=== PATIENT | male | born 1950 | race Caucasian/White ===

== ENCOUNTER 2017-01-02 23:35 | Emergency (ER) | payer MEDICARE, OTHER ==
[2017-01-02] MEDS ORDERED: BABY ASPIRIN 81 MG CHEW PO ONE (23:57)
[2017-01-03 00:03] LABS: BASOPHIL % 0.3 % (0.0-0.4); Eosinophil % 1.1 % (0.00-5.0); Granulocytes % 48.7 % (36.0-66.0); Mean Cell Volume 88.8 fl (78-100); Mean Corpuscular Hemoglobin 30.2 pg (26-32); Mean Platelet Volume 9.7 fl (6-9.5); Monocytes % 14.9 % (0.0-12.0); Platelet Count 222 K/mm3 (150-450); Red Blood Count 4.37 M/mm3 (4.1-5.6); Red Cell Distribution Width 13.2 % (11.5-14.0); White Blood Count 7.3 K/mm3 (4.0-10.5)
[2017-01-03] MEDS ORDERED: BABY ASPIRIN 81 MG CHEW ONE (00:13)
[2017-01-03 00:30] LABS: ALBUMIN 3.7 g/dL (3.4-5.0); ANION GAP 14.9 MEQ/L (5-15); BILIRUBIN,TOTAL 0.3 mg/dL (0.2-1.0); Potassium 3.6 mEq/L (3.5-5.1)
--- NOTE | 2017-01-03 01:15 | ERPHSYRPT ---
- History of Present Illness Time Seen by Provider: 01/02/17 23:50 Source: patient, family () Patient Subjective Stated Complaint: "It feels like I am in a-fib again. it does not feel liek it is not beating normal. it feel slike it beats then pulses and pounds. it woke me up from my sleep. i feel shaky" Triage Nursing Assessment: aox3, breathing easy unlabored, skin pale warm dry, steady gait Physician History: CC: palpitations Hx: 66 y/o patient of Dr Clifford Viramontes and Palmer Anglin. He has hx of afib but has long been in NSR. He takes multaq, xarelto, and bystolic. Tonite he awoke with irregular heart beat, pounding in his chest, sweats, shakes and dry mouth. No chest pain. He felt dizzy and short of breath briefly. It is feeling better now. ILL: Afib, DM, TARYN, thyroid disease ALL: Sulfa Aspirin Treatment Today: 81 mg x 1, provided by ED Allergies/Adverse Reactions: Sulfa (Sulfonamide Antibiotics) [Sulfa(Sulfonamide Antibiotics)] Allergy ( Intermediate, Verified 07/30/13 10:00) Hives adhesive Allergy (Mild, Verified 07/30/13 10:00) Rash Home Medications: Amlodipine/Atorvastatin [Caduet 10 mg-10 mg Tablet] 1 tab PO DAILY 03/24/12 [ History] Fexofenadine HCl [Kate] 180 mg DAILY PRN 03/24/12 [History] Meloxicam [Mobic] 7.5 mg PO BID 03/24/12 [History] Nebivolol HCl 5 MG [Bystolic 5 MG] 10 mg PO DAILY 03/24/12 [History] Levothyroxine Sodium 25 Mcg [Synthroid 25 Mcg] 25 mcg PO DAILY 07/27/13 [ History] Metformin HCl 500 mg [Glucophage 500 MG] 500 mg PO BID 07/27/13 [History] Potassium Chloride 10 Meq Tab* [Klor Con 10 MEQ] 10 meq PO BID 07/27/13 [ History] Dronedarone Hydrochloride 400* [Multaq 400 MG] 400 mg PO BID 07/30/13 [ History] Nebivolol HCl [Bystolic] 10 mg PO DAILY 07/30/13 [History] Olmesartan/Hydrochlorothiazide [Benicar Hct 40-12.5 mg Tablet] 1 each PO DAILY 07/30/13 [History] Rivaroxaban [Xarelto] 20 mg PO DAILY 07/30/13 [History] Hx Tetanus, Diphtheria Vaccination/Date Given: Yes Hx Influenza Vaccination/Date Given: Yes (2011) Hx Pneumococcal Vaccination/Date Given: Yes (2011) - Review of Systems Constitutional: No Fever, No Chills Eyes: No Symptoms Ears, Nose, & Throat: No Symptoms Respiratory: Dyspnea (briefly), No Cough Cardiac: Palpitations, No Chest Pain, No Syncope Abdominal/Gastrointestinal: Nausea, No Abdominal Pain, No Vomiting, No Diarrhea Genitourinary Symptoms: No Symptoms Musculoskeletal: No Symptoms Skin: No Symptoms All Other Systems: Reviewed and Negative - Past Medical History Pertinent Past Medical History: Yes Neurological History: No Pertinent History ENT History: Cataracts Cardiac History: High Cholesterol, Hypertension Respiratory History: No Pertinent History Endocrine Medical History: No Pertinent History Musculoskeletal History: Arthritis GI Medical History: No Pertinent History History: No Pertinent History Psycho-Social History: No Pertinent History Male Reproductive Disorders: No Pertinent History Other Medical History: stress test october 2012 afib . - Past Surgical History Past Surgical History: Yes Neuro Surgical History: No Pertinent History Cardiac: No Pertinent History Respiratory: No Pertinent History Gastrointestinal: No Pertinent History Genitourinary: No Pertinent History Musculoskeletal: Orthopedic Surgery Male Surgical History: No Pertinent History Other Surgical History: fatty cyst exc.(several) arms and back 1970s,right knee cartill.mary.,left knee tear,colonoscopy , mary cataract exc with lens implants - Social History Smoking Status: Never smoker Exposure to second hand smoke: No Drug Use: none Patient Lives Alone: No - Nursing Vital Signs Nursing Vital Signs: Initial Vital Signs Temperature 98.2 F 01/02/17 23:47 Pulse Rate 79 01/02/17 23:47 Respiratory Rate 14 01/02/17 23:47 Blood Pressure 138/80 01/02/17 23:47 O2 Sat by Pulse Oximetry 98 01/02/17 23:47 Pain Scale Pain Intensity 0 - Physical Exam General Appearance: alert Eye Exam: PERRL/EOMI Ears, Nose, Throat Exam: normal ENT inspection, moist mucous membranes Neck Exam: normal inspection, non-tender, supple Respiratory Exam: normal breath sounds, lungs clear Cardiovascular Exam: irregular Gastrointestinal/Abdomen Exam: soft, No tenderness, No distention, No mass, No guarding Extremity Exam: pedal edema, No calf tenderness Neurologic Exam: alert, oriented x 3, cooperative, sensation nml, No motor deficits Skin Exam: warm, dry, No rash SpO2 Interpretation: normal SpO2: 94 Oxygen Delivery: Room Air - Course Nursing assessment & vital signs reviewed: Yes EKG Interpreted by Me: RATE (84), A-fib, NORMAL AXIS, NORMAL INTERVALS (QTc 445) , Non-specific ST Changes - Radiology Exams cxr X-ray Interpretation: Reviewed by me Ordered Tests: Active Orders 24 hr Category Date Time Status Newspaper Subscription Solicitor STAT Care 01/02/17 23:57 Active EKG-ER Only STAT Care 01/02/17 23:57 Active IV Insertion STAT Care 01/02/17 23:57 Active Pulse Oximetry (ED) STAT Care 01/02/17 23:57 Active CHEST 1 VIEW (PORTABLE) Stat Exams 01/02/17 23:57 Taken CBC W DIFF Stat Lab 01/02/17 23:50 Completed CMP Stat Lab 01/02/17 23:50 Completed MAGNESIUM Stat Lab 01/02/17 23:50 Completed NT PRO BNP Stat Lab 01/02/17 23:50 Completed TROPONIN Q3H Lab 01/02/17 23:50 Completed TROPONIN Q3H Lab 01/03/17 02:55 Received TROPONIN Q3H Lab 01/03/17 05:57 Ordered TROPONIN Q3H Lab 01/03/17 08:57 Ordered TROPONIN Q3H Lab 01/03/17 11:57 Ordered Medication Summary Discontinued Medications Generic Name Dose Route Start Last Admin Trade Name Obi PRN Reason Stop Dose Admin Aspirin 81 mg 01/02/17 23:57 01/03/17 00:07 Baby Aspirin 81 Mg Chew PO 01/02/17 23:58 81 mg STAT ONE Administration Aspirin Confirm 01/03/17 00:13 Baby Aspirin 81 Mg Chew Administered 01/03/17 00:14 Dose 81 mg .ROUTE .STK-MED ONE Lab/Rad Data: Laboratory Result Diagrams 01/02/17 23:50 01/02/17 23:50 Laboratory Results 01/02/17 01/02/17 01/02/17 Range/Units 23:50 23:50 23:50 WBC 7.3 (4.0-10.5) K/mm3 RBC 4.37 (4.1-5.6) M/mm3 Hgb 13.2 (12.5-18.0) gm/dl Hct 38.8 L (42-50) % MCV 88.8 (78-100) fl MCH 30.2 (26-32) pg MCHC 34.0 (32-36) g/dl RDW 13.2 (11.5-14.0) % Plt Count 222 (150-450) K/mm3 MPV 9.7 H (6-9.5) fl Gran % 48.7 (36.0-66.0) % Lymphocytes % 35.0 (24.0-44.0) % Monocytes % 14.9 H (0.0-12.0) % Eosinophils % 1.1 (0.00-5.0) % Basophils % 0.3 (0.0-0.4) % Basophils # 0.02 (0-0.4) Sodium 139 (136-145) mEq/L Potassium 3.6 (3.5-5.1) mEq/L Chloride 102 (98-107) mEq/L Carbon Dioxide 26.0 (21-32) mEq/L Anion Gap 14.9 (5-15) MEQ/L BUN 17 (9-20) mg/dL Creatinine 1.39 H (0.55-1.30) mg/dl Estimated GFR 54 ML/MIN Glucose 226 H (70-110) MG/DL Calcium 8.8 (8.5-10.1) mg/dL Magnesium 2.0 (1.8-2.4) mg/dL Total Bilirubin 0.30 (0.2-1.0) mg/dL AST 19 (15-37) U/L ALT 24 (12-78) U/L Alkaline Phosphatase 102 (46-116) U/L Troponin I (0.000-0.056) ng/ml NT-Pro-B Natriuret Pep 95 (0-125) pg/ml Serum Total Protein 7.0 (6.4-8.2) gm/dL Albumin 3.7 (3.4-5.0) g/dL 01/02/17 Range/Units 23:50 WBC (4.0-10.5) K/mm3 RBC (4.1-5.6) M/mm3 Hgb (12.5-18.0) gm/dl Hct (42-50) % MCV (78-100) fl MCH (26-32) pg MCHC (32-36) g/dl RDW (11.5-14.0) % Plt Count (150-450) K/mm3 MPV (6-9.5) fl Gran % (36.0-66.0) % Lymphocytes % (24.0-44.0) % Monocytes % (0.0-12.0) % Eosinophils % (0.00-5.0) % Basophils % (0.0-0.4) % Basophils # (0-0.4) Sodium (136-145) mEq/L Potassium (3.5-5.1) mEq/L Chloride (98-107) mEq/L Carbon Dioxide (21-32) mEq/L Anion Gap (5-15) MEQ/L BUN (9-20) mg/dL Creatinine (0.55-1.30) mg/dl Estimated GFR ML/MIN Glucose (70-110) MG/DL Calcium (8.5-10.1) mg/dL Magnesium (1.8-2.4) mg/dL Total Bilirubin (0.2-1.0) mg/dL AST (15-37) U/L ALT (12-78) U/L Alkaline Phosphatase (46-116) U/L Troponin I < 0.017 (0.000-0.056) ng/ml NT-Pro-B Natriuret Pep (0-125) pg/ml Serum Total Protein (6.4-8.2) gm/dL Albumin (3.4-5.0) g/dL - Progress Progress Note: 01/03/17 01:14 Pt is stable. He is back in afib. Stable and rate is controlled. Troponin neg. Will consult Dr Anglin. 01/03/17 03:09 Pt stable. Ambualted well without symptoms. HR up to 105. BP ok. He still is in afib. Never had chest pain. Repeat troponin pending. Called DR Shah for Palmer Anglin. He advised release and to his office this AM. Will consider cardioversion. Counseled pt/family regarding: lab results, diagnosis, need for follow-up, rad results - Departure Time of Disposition: 03:10 Departure Disposition: Home Clinical Impression: Atrial fibrillation Qualifiers: Atrial fibrillation type: paroxysmal Qualified Code(s): I48.0 - Paroxysmal atrial fibrillation Condition: Stable Critical Care Time: No Referrals: ANTONIA SABILLON MD [NON-STAFF PHY W/O PRIVILEGES] - Instructions: Atrial Fibrillation Additional Instructions: Nothing to eat or drink this AM. Go to Dr Shah office at 9AM to be seen by him. No driving. Return for problems or concerns.
[2017-01-03 02:08] VITALS: BP 114/63; PULSE 63
[2017-01-03 03:13] VITALS: O2SAT 94
--- NOTE | 2017-01-03 08:47 | XRAY ---
Indication: Palpitations. Comparison: October 26, 2012. Portable chest remains clear. Heart is again borderline enlarged. Vascularity normal. 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 Bony thorax intact. Impression: Stable nonacute chest with chronic features.
== END 2017-01-03 04:01 | disposition home or self-care (01) ==
LOC: ED 23:35
DX: I48.0 Paroxysmal atrial fibrillation (principal); Z79.01 Long term (current) use of anticoagulants; Z79.899 Other long term (current) drug therapy; E11.9 Type 2 diabetes mellitus without complications; G47.33 Obstructive sleep apnea (adult) (pediatric); Z79.84 Long term (current) use of oral hypoglycemic drugs; I10 Essential (primary) hypertension; E78.00 Pure hypercholesterolemia, unspecified
CPT/HCPCS: 36000; 36415; 71010; 80053; 83735; 83880; 84484; 85025; 93005; 93041; 99284; A9270-GY

== ENCOUNTER 2020-01-24 05:54 | Day surgery (SDC) | payer MEDICARE, OTHER ==
[~2020-01-24 05:54] MED LIST: DIPRIVAN 200 MG/20 ML IV ONE
[2020-01-24] MEDS ORDERED: Lactated Ringers 1,000 ML IV ONE (06:17)
[2020-01-24] MEDS ORDERED: Lactated Ringers 1,000 ML IV SCH (06:30)
[2020-01-24 08:50] VITALS: PULSE 86; O2SAT 99
[2020-01-24 09:00] VITALS: BP 152/74
--- NOTE | 2020-01-24 09:50 | OP ---
SURGERY DATE/TIME: 01/24/2020729 PREOPERATIVE DIAGNOSIS: Screening colonoscopy. POSTOPERATIVE DIAGNOSIS: Hepatic flexure polyp. PROCEDURE: Colonoscopy. SURGEON: Richard Robertson M.D. ANESTHESIA: MAC by Monty Sandoval CRNA. ESTIMATED BLOOD LOSS: Minimal. SPECIMENS: Hot forceps polypectomy from the hepatic flexure. DESCRIPTION OF PROCEDURE: After informed written consent was obtained, the patient was taken to the endoscopy suite. He was placed in Left lateral decubitus position and underwent monitored anesthesia. A digital rectal exam showed normal sphincter tone and no internal lesions. The scope was inserted into the rectum and sequentially the entire colonic mucosa was traversed. The level of cecum was reached and verified with direct visualization of ileocecal valve. Upon withdrawal careful mucosal inspection revealed a sessile polyp in the hepatic flexure area which was grasped with forceps cauterized and removed. It was removed in piecemeal fashion. It was firm and required multiple grasps and cautery with removal. After removal though the entire lesion appeared to be destroyed with good hemostasis and adequate removal. No other lesions were encountered upon withdrawal. Retroflexion was performed prior to withdrawal and showed no internal lesions. The scope was removed and the patient was transferred to the recovery room. He is advised to follow up in one week for pathology results.
== END 2020-01-24 08:50 | disposition home or self-care (01) ==
LOC: SDC 05:54
PROVIDERS: ATTEND Family Medicine
DX: Z12.11 Encounter for screening for malignant neoplasm of colon (principal); D12.3 Benign neoplasm of transverse colon; E11.9 Type 2 diabetes mellitus without complications; Z79.899 Other long term (current) drug therapy
CPT/HCPCS: 82962; J2704

== ENCOUNTER 2021-06-09 06:47 | Observation (INO) | payer MEDICARE, OTHER ==
[2021-06-09] MEDS ORDERED: Zofran 4 MG/2 ML VIAL IV ONE ×2 (07:22→08:43)
[2021-06-09] MEDS ORDERED: Zofran 4 MG/2 ML VIAL ONE ×2 (07:23→08:40)
[2021-06-09] MEDS ORDERED: Sodium Chloride 0.9% 1000 ML 1,000 ML IV SCH (07:30)
[2021-06-09 07:46] LABS: Absolute Neutrophil Ct (ANC) 11.72 (1.4-6.9); Basophil (Absolute #) 0 (0-0.4); Eosinophil % 0.2 % (0.00-5.0); Eosinophil (Absolute #) 0.03 (0-0.5); Hemoglobin 14.7 gm/dl (12.5-18.0); Lymphocyte (Absolute #) 0.78 (1.0-4.6); Lymphocytes % 5.9 % (24.0-44.0); Mean Cell Volume 93.4 fl (78-100); Mean Corpuscular Hemoglobin 30.5 pg (26-32); Mean Corpuscular Hgb Concent. 32.7 g/dl (32-36); Mean Platelet Volume 10.2 fl (7.5-11.0); Monocyte (Absolute #) 0.76 (0.0-1.3); Monocytes % 5.7 % (0.0-12.0); Neutrophil % 88.2 % (36.0-66.0); Platelet Count 208 K/mm3 (150-450); Red Blood Count 4.82 M/mm3 (4.1-5.6); Red Cell Distribution Width 14.4 % (11.5-14.0); White Blood Count 13.3 K/mm3 (4.0-10.5)
--- NOTE | 2021-06-09 07:53 | ERPHSYRPT ---
- History of Present Illness Time Seen by Provider: 06/09/21 07:10 Historian: patient Exam Limitations: no limitations Patient Subjective Stated Complaint: Patient states he became nauseated at 2am today and has vomited several times since then. Patient describes "my stomach just feels full. Like I have food in there that needs to digest but won't." Patient indicates that he had an ear infection recently and has completed 2 different series of antibiotics for this infection; the most recent atb was finished on Tuesday. He has a follow-up appointment with Dr. Robertson tomorrow at 1:30pm. Denies any fever but indicates he has been having sinus headaches and some dizziness that he is unsure if it is related to the ear infections and if it has anything to do with the new/current N/V. Denies any loose stools or constipation. Last ate milk and cookies at 10pm last night. Triage Nursing Assessment: Patient brought back to ED in W/C. He is alert and oriented and answering questions appropriately. Abdomen is large, firm; patient is obese. Unable to hear bowel sounds on assessment. Patient states he has some slight pain when palpating his right lower abdomen. No SOB noted. Physician History: Patient is a 71-year-old male presents to our ED with complaints of abdominal bloating nausea and vomiting. Symptoms started approximately 2 AM this morning. Patient states he had milk and cookies at approximately 10 PM and felt well at that time. At 2 AM he felt nauseous and vomited several times. Vomitus was nonbloody nonbilious. Patient ingested Pepto-Bismol 3 AM with no significant relief. Patient states his symptoms are ongoing. No trauma. No fever. Patient has been experiencing an ear infection. Patient completed two courses of antibiotics for this ear infection. Patient has been experiencing a sinus headache and some vague dizziness which he attributes to this ear infection. Patient is currently not dizzy. Patient denies alba abdominal pain. There is mild tenderness palpation of the right lower quadrant. No rebound. Symptoms are mild to moderate in intensity. Patient voices no other complaints or concerns at this time. Timing/Duration: today Activities at Onset: none Quality: fullness Abdominal Pain Onset Location: RLQ Pain Radiation: no radiation Severity of Pain-Max: moderate Severity of Pain-Current: mild Modifying Factors: Improves With: nothing Associated Symptoms: nausea, vomiting, No chest pain, No diarrhea, No fever/chills, No shortness of breath, No syncope, No testicular pain, No weakness Previous symptoms: no prior history Allergies/Adverse Reactions: Sulfa (Sulfonamide Antibiotics) [Sulfa(Sulfonamide Antibiotics)] Allergy (Intermediate, Verified 06/09/21 06:49) Hives adhesive Allergy (Mild, Verified 06/09/21 06:49) Rash latex Adverse Reaction (Mild, Verified 06/09/21 06:49) Rash Home Medications: Fexofenadine HCl [Kate] 180 mg PO DAILY PRN 03/24/12 [History] Potassium Chloride 10 Meq Tab* [Klor Con 10 MEQ] 20 meq PO TID 07/27/13 [History] Dronedarone Hydrochloride 400* [Multaq 400 MG] 400 mg PO BID 07/30/13 [History] Nebivolol HCl [Bystolic] 10 mg PO DAILY 07/30/13 [History] Rivaroxaban [Xarelto] 20 mg PO DAILY 07/30/13 [History] Amlodipine/Atorvastatin [Amlodipine-Atorvast 10-20 mg] 1 each PO DAILY 01/17/20 [History] Azelastine Nasal [Astelin Nasal] 1 applic INTRANASAL DAILY 01/17/20 [History] Ibuprofen 200 mg [Motrin 200 mg] 200 mg PO DAILY PRN 01/17/20 [History] Levothyroxine Sodium [Synthroid] 200 mcg PO UD 01/17/20 [History] Losartan Potassium [Cozaar] 100 mg PO DAILY 01/17/20 [History] Magnesium Oxide [Magnesium] 400 mg PO DAILY 01/17/20 [History] Montelukast Sodium 10 mg [Singulair 10 MG] 10 mg PO DAILY 01/17/20 [History] Multivitamin [Multivitamins] 1 each PO DAILY 01/17/20 [History] Olopatadine HCl Ophth [Patanol 1% OPHTHALMIC] 1 drop IO DAILY 01/17/20 [History] Pioglitazone 30 mg [Actos 30 MG] 30 mg PO DAILY 01/17/20 [History] tadalafiL [Cialis] 5 mg PO DAILY 01/17/20 [History] Hx Tetanus, Diphtheria Vaccination/Date Given: Yes Hx Influenza Vaccination/Date Given: Yes Hx Pneumococcal Vaccination/Date Given: Yes (2011) Immunizations Up to Date: Yes Travel Risk - International Travel Have you traveled outside of the country in past 3 weeks: No - Coronavirus Screening Symptoms: Vomiting/Diarrhea, Headaches/Body Aches/Fatigue Close contact with a COVID-19 positive Pt in past 14-21 Days: No - Vaccine Status Have you recieved a Covid-19 vaccination: Yes Community Affairs Manager: [employer] - Vaccination Dates Date of 2cond Vaccination (if applicable): 2020 Comment: Booster - Review of Systems Constitutional: No Symptoms, No Fever, No Chills Eyes: No Symptoms Ears, Nose, & Throat: No Symptoms Respiratory: No Symptoms, No Cough, No Dyspnea Cardiac: No Symptoms, No Chest Pain, No Edema, No Syncope Abdominal/Gastrointestinal: No Symptoms, No Abdominal Pain, No Nausea, No Vomiting, No Diarrhea Genitourinary Symptoms: No Symptoms, No Dysuria Musculoskeletal: No Symptoms, No Back Pain, No Neck Pain Skin: No Symptoms, No Rash Neurological: No Symptoms, No Dizziness, No Focal Weakness, No Sensory Changes Psychological: No Symptoms Endocrine: No Symptoms Hematologic/Lymphatic: No Symptoms Immunological/Allergic: No Symptoms All Other Systems: Reviewed and Negative - Past Medical History Pertinent Past Medical History: Yes Neurological History: No Pertinent History ENT History: Cataracts Cardiac History: Arrhythmia, High Cholesterol, Hypertension Respiratory History: Sleep Apnea Endocrine Medical History: Diabetes Type II, Hypothyroidism, Other Musculoskeletal History: Arthritis GI Medical History: No Pertinent History History: No Pertinent History Psycho-Social History: No Pertinent History Male Reproductive Disorders: No Pertinent History Other Medical History: afib, hashimotos disease, ear infections - Past Surgical History Past Surgical History: Yes Neuro Surgical History: No Pertinent History Cardiac: No Pertinent History Respiratory: No Pertinent History Gastrointestinal: Hernia Repair Genitourinary: No Pertinent History Musculoskeletal: Orthopedic Surgery Male Surgical History: No Pertinent History Other Surgical History: fatty cyst exc.(several) arms and back 1970s,right knee cartill.mary.,left knee tear,colonoscopy , mary cataract exc with lens implants, u mbilical hernia, trigger thumb - Social History Smoking Status: Former smoker Exposure to second hand smoke: No Drug Use: none Patient Lives Alone: No () - Nursing Vital Signs Nursing Vital Signs: Initial Vital Signs Temperature 98 F 06/09/21 06:51 Pulse Rate 73 06/09/21 06:51 Respiratory Rate 17 06/09/21 06:51 Blood Pressure 165/84 06/09/21 06:51 O2 Sat by Pulse Oximetry 97 06/09/21 06:51 Pain Scale Pain Intensity 2 - Physical Exam General Appearance: no apparent distress, alert Eye Exam: PERRL/EOMI, eyes nml inspection Ears, Nose, Throat Exam: normal ENT inspection, pharynx normal, moist mucous membranes Neck Exam: normal inspection, non-tender, supple, full range of motion Respiratory Exam: normal breath sounds, lungs clear, airway intact, No respiratory distress Cardiovascular Exam: regular rate/rhythm, normal heart sounds, normal peripheral pulses Gastrointestinal/Abdomen Exam: soft, normal bowel sounds, No tenderness, No mass Male Genitalia Exam: testicular tenderness, testicular mass Back Exam: normal inspection, normal range of motion, No CVA tenderness, No vertebral tenderness Extremity Exam: normal inspection, normal range of motion, pelvis stable Neurologic Exam: alert, oriented x 3, cooperative, normal mood/affect, nml cere bellar function, sensation nml, No motor deficits Skin Exam: normal color, warm, dry, No jaundice SpO2 Interpretation: normal SpO2: 97 O2 Delivery: Room Air - Course Nursing assessment & vital signs reviewed: Yes EKG Interpreted by Me: RATE, Sinus Rhythm, NORMAL AXIS, NORMAL INTERVALS - CT Exams Abdomen/Pelvis CT Interpretation: Tele-radiologist Report (Ileus versus gastritis. Panniculitis. Observation of the known 3 cm AAA.) Ordered Tests: Active Orders 24 hr Category Date Time Status IV Insertion STAT Care 06/09/21 07:17 Active ABDOMEN AND PELVIS W CONTRAST [CT] Stat Exams 06/09/21 07:20 Completed CBC W DIFF Stat Lab 06/09/21 06:58 Completed CMP Stat Lab 06/09/21 06:58 Completed LIPASE Stat Lab 06/09/21 06:58 Completed TROPONIN Q3H Lab 06/09/21 06:58 Completed TROPONIN Q3H Lab 06/09/21 10:30 Completed TROPONIN Q3H Lab 06/09/21 13:30 Ordered TROPONIN Q3H Lab 06/09/21 16:30 Ordered TROPONIN Q3H Lab 06/09/21 19:30 Ordered UA W/RFX UR CULTURE Stat Lab 06/09/21 07:18 Ordered Transfer Order Routine Transfer 06/09/21 Ordered Medication Summary Generic Name Dose Route Start Last Admin Trade Name Obi PRN Reason Stop Dose Admin Sodium Chloride 1,000 mls @ 100 mls/hr 06/09/21 07:30 06/09/21 07:25 Sodium Chloride 0.9% 1000 Ml IV 07/09/21 07:29 100 mls/hr .Q10H DONATO Administration Discontinued Medications Generic Name Dose Route Start Last Admin Trade Name Obi PRN Reason Stop Dose Admin Ondansetron HCl 4 mg 06/09/21 07:22 06/09/21 07:25 Ondansetron Hcl 4 Mg/2 Ml Vial IV 06/09/21 07:23 4 mg STAT ONE Administration Ondansetron HCl Confirm 06/09/21 07:23 Ondansetron Hcl 4 Mg/2 Ml Vial Administered 06/09/21 07:24 Dose 4 mg .ROUTE .STK-MED ONE Ondansetron HCl Confirm 06/09/21 08:40 Ondansetron Hcl 4 Mg/2 Ml Vial Administered 06/09/21 08:41 Dose 4 mg .ROUTE .STK-MED ONE Ondansetron HCl 4 mg 06/09/21 08:43 06/09/21 08:44 Ondansetron Hcl 4 Mg/2 Ml Vial IV 06/09/21 08:44 4 mg STAT ONE Administration Lab/Rad Data: Laboratory Result Diagrams 06/09/21 06:58 06/09/21 06:58 Laboratory Results 06/09/21 06/09/21 06/09/21 Range/Units 10:30 10:29 06:58 WBC (4.0-10.5) K/mm3 RBC (4.1-5.6) M/mm3 Hgb (12.5-18.0) gm/dl Hct (42-50) % MCV (78-100) fl MCH (26-32) pg MCHC (32-36) g/dl RDW (11.5-14.0) % Plt Count (150-450) K/mm3 MPV (7.5-11.0) fl Gran % (36.0-66.0) % Eos # (Auto) (0-0.5) Absolute Lymphs (auto) (1.0-4.6) Absolute Monos (auto) (0.0-1.3) Lymphocytes % (24.0-44.0) % Monocytes % (0.0-12.0) % Eosinophils % (0.00-5.0) % Basophils % (0.0-0.4) % Absolute Granulocytes (1.4-6.9) Basophils # (0-0.4) Sodium (137-145) mmol/L Potassium (3.5-5.1) mmol/L Chloride (98-107) mmol/L Carbon Dioxide (22-30) mmol/L Anion Gap (5-15) MEQ/L BUN (9-20) mg/dL Creatinine (0.66-1.25) mg/dL Estimated GFR ML/MIN Glucose (74-106) mg/dL Calcium (8.4-10.2) mg/dL Total Bilirubin (0.2-1.3) mg/dL AST (17-59) U/L ALT (0-50) U/L Alkaline Phosphatase (38-126) U/L Troponin I < 0.012 < 0.012 (0.000-0.034) ng/mL Serum Total Protein (6.3-8.2) g/dL Albumin (3.5-5.0) g/dL Lipase (23-300) U/L Influenza Type A Ag NEGATIVE (NEGATIVE) Influenza Type B Ag NEGATIVE (NEGATIVE) RSV (PCR) NEGATIVE (Negative) SARS-CoV-2 (PCR) NEGATIVE (NEGATIVE) 06/09/21 06/09/21 Range/Units 06:58 06:58 WBC 13.3 H (4.0-10.5) K/mm3 RBC 4.82 (4.1-5.6) M/mm3 Hgb 14.7 (12.5-18.0) gm/dl Hct 45.0 (42-50) % MCV 93.4 (78-100) fl MCH 30.5 (26-32) pg MCHC 32.7 (32-36) g/dl RDW 14.4 H (11.5-14.0) % Plt Count 208 (150-450) K/mm3 MPV 10.2 (7.5-11.0) fl Gran % 88.2 H (36.0-66.0) % Eos # (Auto) 0.03 (0-0.5) Absolute Lymphs (auto) 0.78 L (1.0-4.6) Absolute Monos (auto) 0.76 (0.0-1.3) Lymphocytes % 5.9 L (24.0-44.0) % Monocytes % 5.7 (0.0-12.0) % Eosinophils % 0.2 (0.00-5.0) % Basophils % 0.0 (0.0-0.4) % Absolute Granulocytes 11.72 H (1.4-6.9) Basophils # 0 (0-0.4) Sodium 139 (137-145) mmol/L Potassium 3.9 (3.5-5.1) mmol/L Chloride 104 (98-107) mmol/L Carbon Dioxide 24 (22-30) mmol/L Anion Gap 15.1 H (5-15) MEQ/L BUN 18 (9-20) mg/dL Creatinine 1.05 (0.66-1.25) mg/dL Estimated GFR > 60.0 ML/MIN Glucose 145 H (74-106) mg/dL Calcium 8.5 (8.4-10.2) mg/dL Total Bilirubin 0.80 (0.2-1.3) mg/dL AST 25 (17-59) U/L ALT 24 (0-50) U/L Alkaline Phosphatase 98 (38-126) U/L Troponin I (0.000-0.034) ng/mL Serum Total Protein 7.5 (6.3-8.2) g/dL Albumin 4.4 (3.5-5.0) g/dL Lipase 55 (23-300) U/L Influenza Type A Ag (NEGATIVE) Influenza Type B Ag (NEGATIVE) RSV (PCR) (Negative) SARS-CoV-2 (PCR) (NEGATIVE) - Progress Progress: improved Progress Note: Work-up reveals an ileus. Patient also has a panniculitis. We intended to send patient home. However patient unable to tolerate p.o. Patient still feels nauseous. Covid test negative. Will admit for observation. Dr. Robertson is not available per Dr. Mars covering. Dr. Mars accepts admission to observation. Patient agrees to admission at [facility] for further evaluation and treatment. Of note patient is aware of his AAA. Patient states that his doctors are observing the AAA and it has been stable at 3 cm. Portions of this note were created with voice recognition technology. There may be grammatical, spelling, punctuation or sound alike errors 06/09/21 11:33 Discussed with : Elizabeth Will see patient in: hospital (observation) Counseled pt/family regarding: lab results, diagnosis, rad results - Departure Departure Disposition: Observation Clinical Impression: Ileus, Gastroenteritis, Diverticulosis, Mesenteric panniculitis, Cholelithiasis, Renal cyst, left, AAA (abdominal aortic aneurysm), Arthritis of spine, Fatty right inguinal hernia Condition: Stable Critical Care Time: No
[2021-06-09 08:22] LABS: ALBUMIN 4.4 g/dL (3.5-5.0); ALKALINE PHOSPHATASE 98 U/L (38-126); ANION GAP 15.1 MEQ/L (5-15); BLOOD UREA NITROGEN 18 mg/dL (9-20); CHLORIDE 104 mmol/L (98-107); Calcium 8.5 mg/dL (8.4-10.2); Carbon Dioxide 24 mmol/L (22-30); Creatinine 1 1.05 mg/dL (0.66-1.25); EST GLOMERULAR FILTRATION RATE > 60.0 ML/MIN; Glucose 145 mg/dL (74-106); LIPASE 55 U/L (23-300); Potassium 3.9 mmol/L (3.5-5.1); SGOT/AST 25 U/L (17-59); SGPT/ALT 24 U/L (0-50); SODIUM 139 mmol/L (137-145); Total Protein 7.5 g/dL (6.3-8.2)
--- NOTE | 2021-06-09 08:47 | XRAY ---
Indication: Nausea and vomiting. Multiple contiguous axial images obtained through the abdomen and pelvis using 100 cc Isovue 370 contrast. Comparison: August 08, 2015. Lung bases again demonstrates dependent atelectasis. No infiltrate or effusion. Heart is borderline enlarged again with prominent epicardiac fat and left infrahilar calcified nodes. Stomach is moderately fluid distended and mild fluid distended small bowel loops with fluid leveling, ileus versus gastroenteritis. Normal appendix. Mild scattered colonic fecal debris and again sigmoid diverticulosis without diverticulitis. No free fluid/air. Midabdomen demonstrates new mild mesenteric stranding without mesenteric nodes favoring mesenteric panniculitis. Gallbladder demonstrates 2 new stones, largest 1.7 cm in the neck of the gallbladder. New 6 mm left mid renal cortical cyst. Remaining liver, gallbladder, pancreas, spleen, adrenal glands, kidneys, ureters, and bladder are unremarkable. Again moderate scattered aortoiliac calcifications with 3 cm distal AAA. No pathologic retroperitoneal lymphadenopathy. Osseous structures intact again with mild degenerative changes throughout the thoracolumbar spine and small right femur head bone island. Stable small fatty right inguinal hernia. Impression: 1. New fluid distended stomach and small bowel loops with fluid leveling, ileus versus gastroenteritis. 2. New midabdomen mesenteric stranding favoring mesenteric panniculitis. 3. New cholelithiasis without cholecystitis. 4. New tiny left renal cyst. 5. Again sigmoid diverticulosis, 3 cm distal AAA, chronic bony findings, and small fatty right inguinal hernia.
[2021-06-09 11:09] LABS: INFLUENZA A NEGATIVE (NEGATIVE); INFLUENZA B NEGATIVE (NEGATIVE); RESPIRATORY SYNCTIAL VIRUS NEGATIVE (Negative); SARS-CoV-2 Xpert Express NEGATIVE (NEGATIVE)
[2021-06-09] MEDS ORDERED: MORPHINE SULFATE 2 MG INJ IV PRN (12:31)
[2021-06-09] MEDS ORDERED: Zofran 4 MG/2 ML VIAL IV PRN (12:31)
[2021-06-09] MEDS ORDERED: FEXOFENADINE HCL 30 MG PO PRN (14:36)
[2021-06-09] MEDS ORDERED: Patanol 1% OPHTHALMIC IO PRN (14:36)
[2021-06-09] MEDS ORDERED: CLARITIN 10 MG PO PRN (15:01)
[2021-06-09] MEDS ORDERED: Lotrisone Cream TP PRN (15:06)
[2021-06-09] MEDS: Sodium Chloride 0.9% 1000 ML 1,000 ML IV SCH (15:49)
[2021-06-09] MEDS: Flonase NASAL NS SCH (15:50)
[2021-06-09] MEDS: SYNTHROID 100 MCG PO SCH (15:51)
[2021-06-09] MEDS: ZOCOR 20MG PO SCH (15:51)
[2021-06-09] MEDS: Cozaar 50 MG PO SCH (15:51)
[2021-06-09] MEDS: NORVASC 5 MG PO SCH (15:52)
[2021-06-09] MEDS: Cordarone 200 MG PO SCH (15:52)
[2021-06-09] MEDS: Singulair 10 MG PO SCH (15:52)
[2021-06-09] MEDS: Bystolic 5 MG PO SCH (15:52)
[2021-06-09] MEDS: ASTELIN NASAL INTRANASAL SCH (15:53)
[2021-06-09] MEDS ORDERED: XARELTO 10 MG TABLET PO SCH (18:00)
[2021-06-09] MEDS ORDERED: NON-FORMULARY ITEM (Rivaroxaban [Xarelto] 20 MG Tablet) PO SCH (18:00)
[2021-06-09 18:12] LABS: Appearance CLEAR (CLEAR); Bilirubin NEGATIVE (NEGATIVE); Blood NEGATIVE Ery/ul (0-5); Glucose NEGATIVE (NEGATIVE); Ketones NEGATIVE (NEGATIVE); Leukocyte Esterase NEGATIVE (NEGATIVE); Mucus SLIGHT /HPF (NEGATIVE); Nitrite NEGATIVE (NEGATIVE); Protein,Urine Dip NEGATIVE (Negative); Urobilinogen NEGATIVE mg/dL (0-1); WBC 0-2 /HPF (0-5)
[2021-06-09] MEDS: Klor Con 10 MEQ PO SCH (21:20)
[2021-06-09] MEDS ORDERED: Klor Con 10 MEQ PO SCH (22:00)
[2021-06-10] MEDS: Sodium Chloride 0.9% 1000 ML 1,000 ML IV SCH (00:38)
[2021-06-10 05:43] LABS: Absolute Neutrophil Ct (ANC) 4.94 (1.4-6.9); Basophil (Absolute #) 0.01 (0-0.4); Eosinophil % 0.2 % (0.00-5.0); Eosinophil (Absolute #) 0.01 (0-0.5); Hematocrit 38.3 % (42-50); Hemoglobin 12.4 gm/dl (12.5-18.0); Lymphocytes % 12.3 % (24.0-44.0); Mean Cell Volume 95.8 fl (78-100); Mean Corpuscular Hgb Concent. 32.4 g/dl (32-36); Mean Platelet Volume 10.1 fl (7.5-11.0); Monocyte (Absolute #) 0.75 (0.0-1.3); Monocytes % 11.5 % (0.0-12.0); Neutrophil % 75.8 % (36.0-66.0); Platelet Count 178 K/mm3 (150-450); Red Cell Distribution Width 14.5 % (11.5-14.0); White Blood Count 6.5 K/mm3 (4.0-10.5)
[2021-06-10 06:04] LABS: ALBUMIN 3.5 g/dL (3.5-5.0); ALKALINE PHOSPHATASE 62 U/L (38-126); ANION GAP 11.6 MEQ/L (5-15); BLOOD UREA NITROGEN 16 mg/dL (9-20); CHLORIDE 106 mmol/L (98-107); Carbon Dioxide 21 mmol/L (22-30); Creatinine 1 0.94 mg/dL (0.66-1.25); EST GLOMERULAR FILTRATION RATE > 60.0 ML/MIN; Glucose 109 mg/dL (74-106); Potassium 3.5 mmol/L (3.5-5.1); SGOT/AST 19 U/L (17-59); SGPT/ALT 19 U/L (0-50); SODIUM 136 mmol/L (137-145); Total Protein 6.1 g/dL (6.3-8.2)
[2021-06-10 06:28] LABS: Calcium 7.1 mg/dL (8.4-10.2)
[2021-06-10] MEDS ORDERED: Actos 30 MG PO SCH (07:30)
--- NOTE | 2021-06-10 08:29 | PCM.SSS ---
History of Present Illness - Chief Complaint Chief Complaint: Ileus, panniculitis History of Present Illness: Mr.EARLE HDZ is a 71 year old male admitted with abdominal pain and nausea/vomiting/diarrhea consistent with gastroenteritis and ileus, his pain and vomiting are resolved, had some diarrhea overnight but tolerating clear liquids. he has been recently ill with vertigo and ear pain, on 2 rounds of po abx but persists with symptoms. he is not improving, vertigo worsens with movement and was worse while he was vomiting. - Review of Systems Constitutional: No Fever, No Chills Respiratory: No Cough, No Short Of Breath Cardiac: No Chest Pain, No Edema, No Syncope Abdominal/Gastrointestinal: No Abdominal Pain, No Nausea, No Vomiting, No Diarrhea Skin: No Rash Neurological: Dizziness, No Focal Weakness, No Parasthesia, No Sensory Changes Medications & Allergies Home Medications: Home Medication List Fexofenadine HCl [Kate] 180 mg PO DAILY PRN PRN 03/24/12 [History Confirmed 06/09/21] Potassium Chloride 10 Meq Tab* [Klor Con 10 MEQ] 20 meq PO TID 07/27/13 [History Confirmed 06/09/21] Nebivolol HCl [Bystolic] 10 mg PO DAILY 07/30/13 [History Confirmed 06/09/21] Rivaroxaban [Xarelto] 20 mg PO 1800 07/30/13 [History Confirmed 06/09/21] Amlodipine/Atorvastatin [Amlodipine-Atorvast 10-20 mg] 1 each PO DAILY 01/17/20 [History Confirmed 06/09/21] Azelastine Nasal [Astelin Nasal] 1 applic INTRANASAL DAILY 01/17/20 [History Confirmed 06/09/21] Ibuprofen 200 mg [Motrin 200 mg] 200 mg PO Q6H PRN PRN 01/17/20 [History Confirmed 06/09/21] Levothyroxine Sodium [Synthroid] 200 mcg PO DAILY 01/17/20 [History Confirmed 06/09/21] Losartan Potassium [Cozaar] 100 mg PO DAILY 01/17/20 [History Confirmed 06/09/21] Montelukast Sodium 10 mg [Singulair 10 MG] 10 mg PO DAILY 01/17/20 [History Confirmed 06/09/21] Olopatadine HCl Ophth [Patanol 1% OPHTHALMIC] 1 drop IO DAILY PRN PRN 01/17/20 [History Confirmed 06/09/21] Pioglitazone 30 mg [Actos 30 MG] 30 mg PO DAILY 01/17/20 [History Confirmed 06/09/21] tadalafiL [Cialis] 5 mg PO DAILY 01/17/20 [History Confirmed 06/09/21] Amiodarone HCl 200 mg [Cordarone 200 MG] 200 mg PO DAILY 06/09/21 [History Confirmed 06/09/21] Clotrimazole/Betamethasone Dip [Clotrimazole-Betamethasone Lot] 1 applic TP BID PRN PRN 06/09/21 [History Confirmed 06/09/21] Fluticasone Propionate 1 spray NS DAILY 06/09/21 [History Confirmed 06/09/21] Meclizine HCl 12.5 mg PO TID PRN #30 tablet 06/10/21 [Rx] Allergies/Adverse Reactions: Allergies Allergy/AdvReac Type Severity Reaction Status Date / Time Sulfa (Sulfonamide Allergy Intermediate Hives Verified 06/09/21 06:49 Antibiotics) [Sulfa(Sulfonamide Antibiotics)] adhesive Allergy Mild Rash Verified 06/09/21 06:49 latex AdvReac Mild Rash Verified 06/09/21 06:49 alcaftadine [From Lastacaft] AdvReac Verified 06/09/21 13:08 - Past Medical History Past Medical History: Yes Neurological History: No Pertinent History ENT History: Cataracts Cardiac History: Arrhythmia, High Cholesterol, Hypertension Respiratory History: Sleep Apnea Endocrine Medical History: Diabetes Type II, Hypothyroidism, Other Musculoskelatal History: Arthritis GI Medical History: No Pertinent History History: No Pertinent History Pyscho-Social History: No Pertinent History Male Reproductive Disorders: No Pertinent History Comment: afib, hashimotos disease, ear infections - Past Surgical History Past Surgical History: Yes Neuro Surgical History: No Pertinent History Cardiac History: No Pertinent History Respiratory Surgery: No Pertinent History GI Surgical History: Hernia Repair Genitourinary Surgical Hx: No Pertinent History Musculskeletal Surgical Hx: Orthopedic Surgery Male Surgical History: No Pertinent History Other Surgical History: fatty cyst exc.(several) arms and back 1970s,right knee cartill.mary.,left knee tear,colonoscopy , mary cataract exc with lens implants, umbilical hernia, trigger thumb - Social History Smoking Status: Former smoker Exposure to second hand smoke: No Alcohol: None Drug Use: none - Physical Exam Vital Signs: Vital Signs - 24 hr Temp Pulse Resp BP Pulse Ox 06/10/21 06:55 98.7 F 70 17 120/56 94 L 06/10/21 03:49 97.8 F 80 19 129/59 95 06/09/21 23:54 72 18 122/58 93 L 06/09/21 23:27 100.2 F 75 16 122/58 93 L 06/09/21 19:44 98.9 F 72 19 114/59 95 06/09/21 16:00 97.5 F 78 15 128/61 95 06/09/21 12:34 97.5 F 70 22 114/54 95 06/09/21 12:10 97.5 F 70 20 114/54 97 06/09/21 11:59 97 06/09/21 11:00 68 16 95/43 95 06/09/21 09:48 78 18 130/65 98 06/09/21 08:45 70 18 96 General Appearance: no apparent distress, obese Neurologic Exam: alert, oriented x 3 Ears, Nose, Throat Exam: TM abnormal (L) (dull and bulging, no erythema) Respiratory Exam: normal breath sounds, lungs clear, No respiratory distress Cardiovascular Exam: regular rate/rhythm, normal heart sounds, normal peripheral pulses Gastrointestinal/Abdomen Exam: soft, normal bowel sounds, No tenderness, No mass Extremity Exam: normal inspection, normal range of motion, pelvis stable Skin Exam: normal color, warm, dry, No rash Results - Labs Lab/Micro Results: Lab Results-Last 24 Hours 06/09/21 06/09/21 06/09/21 Range/Units 06:58 06:58 10:29 WBC (4.0-10.5) K/mm3 RBC (4.1-5.6) M/mm3 Hgb (12.5-18.0) gm/dl Hct (42-50) % MCV (78-100) fl MCH (26-32) pg MCHC (32-36) g/dl RDW (11.5-14.0) % Plt Count (150-450) K/mm3 MPV (7.5-11.0) fl Gran % (36.0-66.0) % Eos # (Auto) (0-0.5) Absolute Lymphs (auto) (1.0-4.6) Absolute Monos (auto) (0.0-1.3) Lymphocytes % (24.0-44.0) % Monocytes % (0.0-12.0) % Eosinophils % (0.00-5.0) % Basophils % (0.0-0.4) % Absolute Granulocytes (1.4-6.9) Basophils # (0-0.4) Sodium 139 (137-145) mmol/L Potassium 3.9 (3.5-5.1) mmol/L Chloride 104 (98-107) mmol/L Carbon Dioxide 24 (22-30) mmol/L Anion Gap 15.1 H (5-15) MEQ/L BUN 18 (9-20) mg/dL Creatinine 1.05 (0.66-1.25) mg/dL Estimated GFR > 60.0 ML/MIN Glucose 145 H (74-106) mg/dL Calcium 8.5 (8.4-10.2) mg/dL Total Bilirubin 0.80 (0.2-1.3) mg/dL AST 25 (17-59) U/L ALT 24 (0-50) U/L Alkaline Phosphatase 98 (38-126) U/L Troponin I < 0.012 (0.000-0.034) ng/mL Serum Total Protein 7.5 (6.3-8.2) g/dL Albumin 4.4 (3.5-5.0) g/dL Lipase 55 (23-300) U/L Urine Color (YELLOW) Urine Appearance (CLEAR) Urine pH (5-6) Ur Specific Penn (1.005-1.025) Urine Protein (Negative) Urine Ketones (NEGATIVE) Urine Blood (0-5) Sly/ul Urine Nitrite (NEGATIVE) Urine Bilirubin (NEGATIVE) Urine Urobilinogen (0-1) mg/dL Ur Leukocyte Esterase (NEGATIVE) Urine WBC (Auto) (0-5) /HPF Urine RBC (Auto) (0-2) /HPF U Epithel Cells (Auto) (FEW) /HPF Urine Bacteria (Auto) (NEGATIVE) /HPF Urine Mucus (Auto) (NEGATIVE) /HPF Urine Culture Reflexed (NO) Urine Glucose (NEGATIVE) mg/dL Influenza Type A Ag NEGATIVE (NEGATIVE) Influenza Type B Ag NEGATIVE (NEGATIVE) RSV (PCR) NEGATIVE (Negative) SARS-CoV-2 (PCR) NEGATIVE (NEGATIVE) 06/09/21 06/09/21 06/09/21 Range/Units 10:30 13:27 16:16 WBC (4.0-10.5) K/mm3 RBC (4.1-5.6) M/mm3 Hgb (12.5-18.0) gm/dl Hct (42-50) % MCV (78-100) fl MCH (26-32) pg MCHC (32-36) g/dl RDW (11.5-14.0) % Plt Count (150-450) K/mm3 MPV (7.5-11.0) fl Gran % (36.0-66.0) % Eos # (Auto) (0-0.5) Absolute Lymphs (auto) (1.0-4.6) Absolute Monos (auto) (0.0-1.3) Lymphocytes % (24.0-44.0) % Monocytes % (0.0-12.0) % Eosinophils % (0.00-5.0) % Basophils % (0.0-0.4) % Absolute Granulocytes (1.4-6.9) Basophils # (0-0.4) Sodium (137-145) mmol/L Potassium (3.5-5.1) mmol/L Chloride (98-107) mmol/L Carbon Dioxide (22-30) mmol/L Anion Gap (5-15) MEQ/L BUN (9-20) mg/dL Creatinine (0.66-1.25) mg/dL Estimated GFR ML/MIN Glucose (74-106) mg/dL Calcium (8.4-10.2) mg/dL Total Bilirubin (0.2-1.3) mg/dL AST (17-59) U/L ALT (0-50) U/L Alkaline Phosphatase (38-126) U/L Troponin I < 0.012 < 0.012 < 0.012 (0.000-0.034) ng/mL Serum Total Protein (6.3-8.2) g/dL Albumin (3.5-5.0) g/dL Lipase (23-300) U/L Urine Color (YELLOW) Urine Appearance (CLEAR) Urine pH (5-6) Ur Specific Penn (1.005-1.025) Urine Protein (Negative) Urine Ketones (NEGATIVE) Urine Blood (0-5) Sly/ul Urine Nitrite (NEGATIVE) Urine Bilirubin (NEGATIVE) Urine Urobilinogen (0-1) mg/dL Ur Leukocyte Esterase (NEGATIVE) Urine WBC (Auto) (0-5) /HPF Urine RBC (Auto) (0-2) /HPF U Epithel Cells (Auto) (FEW) /HPF Urine Bacteria (Auto) (NEGATIVE) /HPF Urine Mucus (Auto) (NEGATIVE) /HPF Urine Culture Reflexed (NO) Urine Glucose (NEGATIVE) mg/dL Influenza Type A Ag (NEGATIVE) Influenza Type B Ag (NEGATIVE) RSV (PCR) (Negative) SARS-CoV-2 (PCR) (NEGATIVE) 06/09/21 06/10/21 06/10/21 Range/Units 17:38 05:20 05:20 WBC 6.5 (4.0-10.5) K/mm3 RBC 4.00 L (4.1-5.6) M/mm3 Hgb 12.4 L (12.5-18.0) gm/dl Hct 38.3 L (42-50) % MCV 95.8 (78-100) fl MCH 31.0 (26-32) pg MCHC 32.4 (32-36) g/dl RDW 14.5 H (11.5-14.0) % Plt Count 178 (150-450) K/mm3 MPV 10.1 (7.5-11.0) fl Gran % 75.8 H (36.0-66.0) % Eos # (Auto) 0.01 (0-0.5) Absolute Lymphs (auto) 0.80 L (1.0-4.6) Absolute Monos (auto) 0.75 (0.0-1.3) Lymphocytes % 12.3 L (24.0-44.0) % Monocytes % 11.5 (0.0-12.0) % Eosinophils % 0.2 (0.00-5.0) % Basophils % 0.2 (0.0-0.4) % Absolute Granulocytes 4.94 (1.4-6.9) Basophils # 0.01 (0-0.4) Sodium 136 L (137-145) mmol/L Potassium 3.5 (3.5-5.1) mmol/L Chloride 106 (98-107) mmol/L Carbon Dioxide 21 L (22-30) mmol/L Anion Gap 11.6 (5-15) MEQ/L BUN 16 (9-20) mg/dL Creatinine 0.94 (0.66-1.25) mg/dL Estimated GFR > 60.0 ML/MIN Glucose 109 H (74-106) mg/dL Calcium 7.1 L D (8.4-10.2) mg/dL Total Bilirubin 0.60 (0.2-1.3) mg/dL AST 19 (17-59) U/L ALT 19 (0-50) U/L Alkaline Phosphatase 62 (38-126) U/L Troponin I (0.000-0.034) ng/mL Serum Total Protein 6.1 L (6.3-8.2) g/dL Albumin 3.5 (3.5-5.0) g/dL Lipase (23-300) U/L Urine Color YELLOW (YELLOW) Urine Appearance CLEAR (CLEAR) Urine pH 5.0 (5-6) Ur Specific Penn 1.060 (1.005-1.025) Urine Protein NEGATIVE (Negative) Urine Ketones NEGATIVE (NEGATIVE) Urine Blood NEGATIVE (0-5) Sly/ul Urine Nitrite NEGATIVE (NEGATIVE) Urine Bilirubin NEGATIVE (NEGATIVE) Urine Urobilinogen NEGATIVE (0-1) mg/dL Ur Leukocyte Esterase NEGATIVE (NEGATIVE) Urine WBC (Auto) 0-2 (0-5) /HPF Urine RBC (Auto) NONE (0-2) /HPF U Epithel Cells (Auto) NONE (FEW) /HPF Urine Bacteria (Auto) NONE (NEGATIVE) /HPF Urine Mucus (Auto) SLIGHT (NEGATIVE) /HPF Urine Culture Reflexed NO (NO) Urine Glucose NEGATIVE (NEGATIVE) mg/dL Influenza Type A Ag (NEGATIVE) Influenza Type B Ag (NEGATIVE) RSV (PCR) (Negative) SARS-CoV-2 (PCR) (NEGATIVE) - Radiology Impressions Radiology Exams & Impressions: Radiology Procedures Category Date Time Status ABDOMEN AND PELVIS W CONTRAST [CT] Stat Exams 06/09/21 07:20 Completed - Other Procedures and Tests Respiratory Therapy 06/09/21 20:13 BiPap/CPAP ROUTINE Assessment/Plan (1) Ileus Current Visit: Yes Status: Acute Assessment & Plan: resolved, home later today if tolerates regular diet. discussed bland diet and maintenance of hydration. Code(s): K56.7 - ILEUS, UNSPECIFIED (2) Vertigo Current Visit: Yes Status: Acute Assessment & Plan: adding po meclizine, needs ENT consult, has seen Dr Foster previously Code(s): R42 - DIZZINESS AND GIDDINESS (3) Atrial fibrillation Current Visit: No Status: Acute Qualifiers: Atrial fibrillation type: paroxysmal Qualified Code(s): I48.0 - Paroxysmal atrial fibrillation Code(s): I48.91 - UNSPECIFIED ATRIAL FIBRILLATION Hospital Summary - Vitals & Intake/Output Vital Signs: Vital Signs Temperature 98.7 F 06/10/21 06:55 Pulse Rate 70 06/10/21 06:55 Respiratory Rate 17 06/10/21 06:55 Blood Pressure 120/56 06/10/21 06:55 O2 Sat by Pulse Oximetry 94 L 06/10/21 06:55 Intake & Output: Intake & Output 06/07/21 06/08/21 06/09/21 06/10/21 11:59 11:59 11:59 11:59 Intake Total 4269 Balance 4269 Weight 156.489 kg 154.6 kg - Lab Result Diagrams: 06/10/21 05:20 06/10/21 05:20 Lab Results-Last 24 Hrs: Lab Results-Last 24 Hours 06/09/21 06/09/21 06/09/21 Range/Units 06:58 06:58 10:29 WBC (4.0-10.5) K/mm3 RBC (4.1-5.6) M/mm3 Hgb (12.5-18.0) gm/dl Hct (42-50) % MCV (78-100) fl MCH (26-32) pg MCHC (32-36) g/dl RDW (11.5-14.0) % Plt Count (150-450) K/mm3 MPV (7.5-11.0) fl Gran % (36.0-66.0) % Eos # (Auto) (0-0.5) Absolute Lymphs (auto) (1.0-4.6) Absolute Monos (auto) (0.0-1.3) Lymphocytes % (24.0-44.0) % Monocytes % (0.0-12.0) % Eosinophils % (0.00-5.0) % Basophils % (0.0-0.4) % Absolute Granulocytes (1.4-6.9) Basophils # (0-0.4) Sodium 139 (137-145) mmol/L Potassium 3.9 (3.5-5.1) mmol/L Chloride 104 (98-107) mmol/L Carbon Dioxide 24 (22-30) mmol/L Anion Gap 15.1 H (5-15) MEQ/L BUN 18 (9-20) mg/dL Creatinine 1.05 (0.66-1.25) mg/dL Estimated GFR > 60.0 ML/MIN Glucose 145 H (74-106) mg/dL Calcium 8.5 (8.4-10.2) mg/dL Total Bilirubin 0.80 (0.2-1.3) mg/dL AST 25 (17-59) U/L ALT 24 (0-50) U/L Alkaline Phosphatase 98 (38-126) U/L Troponin I < 0.012 (0.000-0.034) ng/mL Serum Total Protein 7.5 (6.3-8.2) g/dL Albumin 4.4 (3.5-5.0) g/dL Lipase 55 (23-300) U/L Urine Color (YELLOW) Urine Appearance (CLEAR) Urine pH (5-6) Ur Specific Penn (1.005-1.025) Urine Protein (Negative) Urine Ketones (NEGATIVE) Urine Blood (0-5) Sly/ul Urine Nitrite (NEGATIVE) Urine Bilirubin (NEGATIVE) Urine Urobilinogen (0-1) mg/dL Ur Leukocyte Esterase (NEGATIVE) Urine WBC (Auto) (0-5) /HPF Urine RBC (Auto) (0-2) /HPF U Epithel Cells (Auto) (FEW) /HPF Urine Bacteria (Auto) (NEGATIVE) /HPF Urine Mucus (Auto) (NEGATIVE) /HPF Urine Culture Reflexed (NO) Urine Glucose (NEGATIVE) mg/dL Influenza Type A Ag NEGATIVE (NEGATIVE) Influenza Type B Ag NEGATIVE (NEGATIVE) RSV (PCR) NEGATIVE (Negative) SARS-CoV-2 (PCR) NEGATIVE (NEGATIVE) 06/09/21 06/09/21 06/09/21 Range/Units 10:30 13:27 16:16 WBC (4.0-10.5) K/mm3 RBC (4.1-5.6) M/mm3 Hgb (12.5-18.0) gm/dl Hct (42-50) % MCV (78-100) fl MCH (26-32) pg MCHC (32-36) g/dl RDW (11.5-14.0) % Plt Count (150-450) K/mm3 MPV (7.5-11.0) fl Gran % (36.0-66.0) % Eos # (Auto) (0-0.5) Absolute Lymphs (auto) (1.0-4.6) Absolute Monos (auto) (0.0-1.3) Lymphocytes % (24.0-44.0) % Monocytes % (0.0-12.0) % Eosinophils % (0.00-5.0) % Basophils % (0.0-0.4) % Absolute Granulocytes (1.4-6.9) Basophils # (0-0.4) Sodium (137-145) mmol/L Potassium (3.5-5.1) mmol/L Chloride (98-107) mmol/L Carbon Dioxide (22-30) mmol/L Anion Gap (5-15) MEQ/L BUN (9-20) mg/dL Creatinine (0.66-1.25) mg/dL Estimated GFR ML/MIN Glucose (74-106) mg/dL Calcium (8.4-10.2) mg/dL Total Bilirubin (0.2-1.3) mg/dL AST (17-59) U/L ALT (0-50) U/L Alkaline Phosphatase (38-126) U/L Troponin I < 0.012 < 0.012 < 0.012 (0.000-0.034) ng/mL Serum Total Protein (6.3-8.2) g/dL Albumin (3.5-5.0) g/dL Lipase (23-300) U/L Urine Color (YELLOW) Urine Appearance (CLEAR) Urine pH (5-6) Ur Specific [place] (1.005-1.025) Urine Protein (Negative) Urine Ketones (NEGATIVE) Urine Blood (0-5) Sly/ul Urine Nitrite (NEGATIVE) Urine Bilirubin (NEGATIVE) Urine Urobilinogen (0-1) mg/dL Ur Leukocyte Esterase (NEGATIVE) Urine WBC (Auto) (0-5) /HPF Urine RBC (Auto) (0-2) /HPF U Epithel Cells (Auto) (FEW) /HPF Urine Bacteria (Auto) (NEGATIVE) /HPF Urine Mucus (Auto) (NEGATIVE) /HPF Urine Culture Reflexed (NO) Urine Glucose (NEGATIVE) mg/dL Influenza Type A Ag (NEGATIVE) Influenza Type B Ag (NEGATIVE) RSV (PCR) (Negative) SARS-CoV-2 (PCR) (NEGATIVE) 06/09/21 06/10/21 06/10/21 Range/Units 17:38 05:20 05:20 WBC 6.5 (4.0-10.5) K/mm3 RBC 4.00 L (4.1-5.6) M/mm3 Hgb 12.4 L (12.5-18.0) gm/dl Hct 38.3 L (42-50) % MCV 95.8 (78-100) fl MCH 31.0 (26-32) pg MCHC 32.4 (32-36) g/dl RDW 14.5 H (11.5-14.0) % Plt Count 178 (150-450) K/mm3 MPV 10.1 (7.5-11.0) fl Gran % 75.8 H (36.0-66.0) % Eos # (Auto) 0.01 (0-0.5) Absolute Lymphs (auto) 0.80 L (1.0-4.6) Absolute Monos (auto) 0.75 (0.0-1.3) Lymphocytes % 12.3 L (24.0-44.0) % Monocytes % 11.5 (0.0-12.0) % Eosinophils % 0.2 (0.00-5.0) % Basophils % 0.2 (0.0-0.4) % Absolute Granulocytes 4.94 (1.4-6.9) Basophils # 0.01 (0-0.4) Sodium 136 L (137-145) mmol/L Potassium 3.5 (3.5-5.1) mmol/L Chloride 106 (98-107) mmol/L Carbon Dioxide 21 L (22-30) mmol/L Anion Gap 11.6 (5-15) MEQ/L BUN 16 (9-20) mg/dL Creatinine 0.94 (0.66-1.25) mg/dL Estimated GFR > 60.0 ML/MIN Glucose 109 H (74-106) mg/dL Calcium 7.1 L D (8.4-10.2) mg/dL Total Bilirubin 0.60 (0.2-1.3) mg/dL AST 19 (17-59) U/L ALT 19 (0-50) U/L Alkaline Phosphatase 62 (38-126) U/L Troponin I (0.000-0.034) ng/mL Serum Total Protein 6.1 L (6.3-8.2) g/dL Albumin 3.5 (3.5-5.0) g/dL Lipase (23-300) U/L Urine Color YELLOW (YELLOW) Urine Appearance CLEAR (CLEAR) Urine pH 5.0 (5-6) Ur Specific [place] 1.060 (1.005-1.025) Urine Protein NEGATIVE (Negative) Urine Ketones NEGATIVE (NEGATIVE) Urine Blood NEGATIVE (0-5) Sly/ul Urine Nitrite NEGATIVE (NEGATIVE) Urine Bilirubin NEGATIVE (NEGATIVE) Urine Urobilinogen NEGATIVE (0-1) mg/dL Ur Leukocyte Esterase NEGATIVE (NEGATIVE) Urine WBC (Auto) 0-2 (0-5) /HPF Urine RBC (Auto) NONE (0-2) /HPF U Epithel Cells (Auto) NONE (FEW) /HPF Urine Bacteria (Auto) NONE (NEGATIVE) /HPF Urine Mucus (Auto) SLIGHT (NEGATIVE) /HPF Urine Culture Reflexed NO (NO) Urine Glucose NEGATIVE (NEGATIVE) mg/dL Influenza Type A Ag (NEGATIVE) Influenza Type B Ag (NEGATIVE) RSV (PCR) (Negative) SARS-CoV-2 (PCR) (NEGATIVE) - Radiology Exams Ordered Rad Exams-Entire Visit: Radiology Procedures Category Date Time Status ABDOMEN AND PELVIS W CONTRAST [CT] Stat Exams 06/09/21 07:20 Completed - Procedures and Test Procedures and Tests throughout Hospitalization: Therapy Orders & Screens 06/09/21 20:13 BiPap/CPAP ROUTINE Comment: Diagnosis: Ileus, panniculitis - Discharge Disposition: Home, Self-Care Condition: Stable Prescriptions: New Meclizine HCl 12.5 mg PO TID PRN #30 tablet Continue Fexofenadine HCl [Kate] 180 mg PO DAILY PRN PRN PRN Reason: Allergies Potassium Chloride 10 Meq Tab* [Klor Con 10 MEQ] 20 meq PO TID Rivaroxaban [Xarelto] 20 mg PO 1800 Nebivolol HCl [Bystolic] 10 mg PO DAILY Losartan Potassium [Cozaar] 100 mg PO DAILY Levothyroxine Sodium [Synthroid] 200 mcg PO DAILY Pioglitazone 30 mg [Actos 30 MG] 30 mg PO DAILY Amlodipine/Atorvastatin [Amlodipine-Atorvast 10-20 mg] 1 each PO DAILY Montelukast Sodium 10 mg [Singulair 10 MG] 10 mg PO DAILY Olopatadine HCl Ophth [Patanol 1% OPHTHALMIC] 1 drop IO DAILY PRN PRN PRN Reason: eye dryness Azelastine Nasal [Astelin Nasal] 1 applic INTRANASAL DAILY Ibuprofen 200 mg [Motrin 200 mg] 200 mg PO Q6H PRN PRN PRN Reason: arthritis tadalafiL [Cialis] 5 mg PO DAILY Amiodarone HCl 200 mg [Cordarone 200 MG] 200 mg PO DAILY Fluticasone Propionate 1 spray NS DAILY Clotrimazole/Betamethasone Dip [Clotrimazole-Betamethasone Lot] 1 applic TP BID PRN PRN PRN Reason: skin irritation Follow up with: GERARDO FOSTER [NON-STAFF PHY W/O PRIVILEGES] - Call for Appointment ESTHER HORNE MD [Primary Care Provider] - 1 Week
[2021-06-10] MEDS ORDERED: ANTIVERT 25 MG PO PRN (08:30)
[2021-06-10] MEDS: Klor Con 10 MEQ PO SCH (09:31)
[2021-06-10] MEDS: Singulair 10 MG PO SCH (09:31)
[2021-06-10] MEDS: Cordarone 200 MG PO SCH (09:31)
[2021-06-10] MEDS: Cozaar 50 MG PO SCH (09:31)
[2021-06-10] MEDS: NORVASC 5 MG PO SCH (09:32)
[2021-06-10] MEDS: SYNTHROID 100 MCG PO SCH (09:32)
[2021-06-10] MEDS: ZOCOR 20MG PO SCH (09:32)
[2021-06-10] MEDS: Bystolic 5 MG PO SCH (09:32)
[2021-06-10] MEDS ORDERED: [UNRECOGNIZED DRUG - OTHER] PO SCH (10:00)
[2021-06-10] MEDS ORDERED: SYNTHROID 100 MCG PO SCH (10:00)
[2021-06-10] MEDS ORDERED: AMLODIPINE PO SCH (10:00)
[2021-06-10] MEDS ORDERED: NON-FORMULARY ITEM (Losartan Potassium [Cozaar] 100 MG Tablet) PO SCH (10:00)
[2021-06-10] MEDS ORDERED: ATORVASTATIN PO SCH (10:00)
[2021-06-10] MEDS ORDERED: Flonase NASAL NS SCH (10:00)
[2021-06-10] MEDS ORDERED: TADALAFIL 5 MG PO SCH (10:00)
[2021-06-10] MEDS ORDERED: NON-FORMULARY ITEM (Nebivolol Hcl [Bystolic] 10 MG Tablet) PO SCH (10:00)
[2021-06-10] MEDS: ASTELIN NASAL INTRANASAL SCH (11:15)
[2021-06-10] MEDS: Flonase NASAL NS SCH (11:15)
[2021-06-10 11:46] VITALS: BP 121/58; PULSE 64; O2SAT 97
== END 2021-06-10 13:10 | disposition home or self-care (01) ==
LOC: ED 06:47 → MED SURG 11:37
PROVIDERS: ADMIT Family Medicine; ATTEND Family Medicine
DX: K56.7 Ileus, unspecified (principal); R42 Dizziness and giddiness; I48.91 Unspecified atrial fibrillation; H92.03 Otalgia, bilateral; E06.3 Autoimmune thyroiditis; E11.9 Type 2 diabetes mellitus without complications; E03.9 Hypothyroidism, unspecified; E78.00 Pure hypercholesterolemia, unspecified; I10 Essential (primary) hypertension; Z79.899 Other long term (current) drug therapy; Z20.828 Contact with and (suspected) exposure to other viral communicable diseases
CPT/HCPCS: 0241U; 36415; 74177; 80053; 81001; 83690; 84484; 85025; 96374; 96376; 99285; 93268; J2405; A9270-GY; G0378

== ENCOUNTER 2022-10-20 23:33 | Emergency (ER) | payer MEDICARE, OTHER ==
--- NOTE | 2022-10-20 23:37 | ERPHSYRPT ---
- History of Present Illness Time Seen by Provider: 10/20/22 23:37 Source: patient, family Exam Limitations: no limitations Physician History: This is a morbidly obese white male patient who presents with blood pressure issues. Specifically, the patient states that despite taking his medication this evening his blood pressure at home was 176/91. He has a mild headache and mild left arm discomfort. Patient denies chest pain. He has no visual changes. Patient's primary care provider is Dr. Robertson and his rn outpatient surgery is Dr. Anglin. His blood pressure medication amlodipine/atorvastatin combination medication was stopped 6 weeks ago and patient started on hydrochlorothiazide. Patient has a history of atrial fibrillation which is now controlled with amiodarone and Bystolic. Patient is also on Xarelto. Patient has a history of hypertension, hyper both thyroidism, sleep apnea, Aislinn's disease and hyperlipidemia. Patient had a twelve-lead EKG performed on 06/09/2021 which showed no acute ischemic changes and a heart rate of 70 bpm as well as a prolong ed [place] interval. Timing/Duration: today Severity: mild Associated Symptoms: headaches (Mild), other (Mild left arm discomfort) Allergies/Adverse Reactions: Sulfa (Sulfonamide Antibiotics) [Sulfa(Sulfonamide Antibiotics)] Allergy (Intermediate, Verified 10/20/22 23:44) Hives adhesive Allergy (Mild, Verified 10/20/22 23:44) Rash latex Adverse Reaction (Mild, Verified 10/20/22 23:44) Rash alcaftadine [From Lastacaft] Adverse Reaction (Verified 10/20/22 23:44) Home Medications: Fexofenadine HCl [Kate] 180 mg PO DAILY PRN PRN 03/24/12 [History] Potassium Chloride Tab* [Klor Con] 10 meq PO BID 07/27/13 [History] Nebivolol HCl [Bystolic] 10 mg PO DAILY 07/30/13 [History] Rivaroxaban [Xarelto] 20 mg PO DAILY 07/30/13 [History] Azelastine Nasal [Astelin Nasal] 1 applic INTRANASAL DAILY 01/17/20 [History] Levothyroxine Sodium [Synthroid] 150 mcg PO DAILY 01/17/20 [History] Losartan Potassium [Cozaar] 100 mg PO DAILY 01/17/20 [History] Montelukast Sodium 10 mg [Singulair 10 MG] 10 mg PO DAILY 01/17/20 [History] Olopatadine HCl Ophth [Olopatadine 1% Ophthalmic] 1 drop IO DAILY PRN PRN 01/17/20 [History] tadalafiL [Cialis] 5 mg PO DAILY 01/17/20 [History] Amiodarone HCl 200 mg [Cordarone 200 MG] 200 mg PO DAILY 06/09/21 [History] Fluticasone Propionate 1 spray NS DAILY 06/09/21 [History] Atorvastatin Calcium 20 mg PO DAILY 10/21/22 [History] Dapagliflozin Propanediol [Farxiga] 10 mg PO DAILY 10/21/22 [History] Hydrochlorothiazide 25 mg [hydroDIURIL 25 MG] 25 mg PO DAILY 10/21/22 [History] Hx Tetanus, Diphtheria Vaccination/Date Given: Yes Hx Influenza Vaccination/Date Given: Yes Hx Pneumococcal Vaccination/Date Given: Yes (2011) Travel Risk - International Travel Have you traveled outside of the country in past 3 weeks: No - Coronavirus Screening Are you exhibiting any of the following symptoms?: No Close contact with a COVID-19 positive Pt in past 14-21 Days: No - Vaccine Status Have you recieved a Covid-19 vaccination: Yes Government [employer]s [employer]: [employer] - Vaccination Dates Date of 2cond Vaccination (if applicable): 2020 Comment: Booster - Review of Systems Constitutional: No Symptoms Eyes: No Symptoms Ears, Nose, & Throat: No Symptoms Respiratory: No Symptoms Cardiac: No Symptoms, No Chest Pain Abdominal/Gastrointestinal: No Symptoms Genitourinary Symptoms: No Symptoms Musculoskeletal: No Symptoms, Other (Mild left arm discomfort) Skin: No Symptoms Neurological: Headache (Mild) Psychological: No Symptoms Endocrine: No Symptoms Hematologic/Lymphatic: No Symptoms Immunological/Allergic: No Symptoms All Other Systems: Reviewed and Negative - Past Medical History Pertinent Past Medical History: Yes Neurological History: No Pertinent History ENT History: Cataracts Cardiac History: Arrhythmia, High Cholesterol, Hypertension Respiratory History: Sleep Apnea Endocrine Medical History: Diabetes Type II, Hypothyroidism, Other Musculoskeletal History: Arthritis GI Medical History: No Pertinent History History: No Pertinent History Psycho-Social History: No Pertinent History Male Reproductive Disorders: No Pertinent History Other Medical History: afib, hashimotos disease, ear infections - Past Surgical History Past Surgical History: Yes Neuro Surgical History: No Pertinent History Cardiac: No Pertinent History Respiratory: No Pertinent History Gastrointestinal: Hernia Repair Genitourinary: No Pertinent History Musculoskeletal: Orthopedic Surgery Male Surgical History: No Pertinent History Other Surgical History: fatty cyst exc.(several) arms and back 1970s,right knee cartill.mary.,left knee tear,colonoscopy , mary cataract exc with lens implants, umbilical hernia, trigger thumb - Social History Smoking Status: Former smoker Exposure to second hand smoke: No Drug Use: none Patient Lives Alone: No () - Nursing Vital Signs Nursing Vital Signs: Initial Vital Signs Temperature 98.4 F 10/20/22 23:44 Pulse Rate 69 10/20/22 23:44 Respiratory Rate 18 10/20/22 23:44 Blood Pressure 201/101 10/20/22 23:44 O2 Sat by Pulse Oximetry 96 10/20/22 23:44 Pain Scale Pain Intensity 0 - Physical Exam General Appearance: no apparent distress, alert, anxiety, obese Eye Exam: PERRL/EOMI, eyes nml inspection Ears, Nose, Throat Exam: normal ENT inspection, moist mucous membranes Neck Exam: normal inspection, non-tender, supple, full range of motion Respiratory Exam: normal breath sounds, lungs clear, airway intact, No chest tenderness, No respiratory distress Cardiovascular Exam: regular rate/rhythm, normal heart sounds, normal peripheral pulses Gastrointestinal/Abdomen Exam: soft, normal bowel sounds, No tenderness Rectal Exam: not done Back Exam: normal inspection, normal range of motion, No CVA tenderness, No vertebral tenderness Extremity Exam: normal inspection, normal range of motion, pelvis stable Neurologic Exam: alert, oriented x 3, cooperative, mail officer II-XII nml as tested, nor mal mood/affect, nml cerebellar function, nml station & gait, sensation nml Skin Exam: normal color, warm, dry Lymphatic Exam: No adenopathy SpO2 Interpretation: normal O2 Delivery: Room Air - Course Nursing assessment & vital signs reviewed: Yes EKG Interpreted by Me: RATE (69), Sinus Rhythm, NORMAL AXIS, NORMAL QRS, NORMAL ST-T, Other (Patient also has a prolonged [place] interval. There are no acute ischemic changes on today's twelve-lead EKG. There is no change from a twelve- lead EKG that was performed on 06/09/2021) Ordered Tests: Active Orders 24 hr Category Date Time Status Program Arranger STAT Care 10/21/22 00:28 Active EKG-ER Only STAT Care 10/21/22 00:27 Active IV Insertion STAT Care 10/21/22 00:27 Active Pulse Oximetry (ED) STAT Care 10/21/22 00:27 Active HEAD WITHOUT CONTRAST [CT] Stat Exams 10/21/22 00:30 Completed CBC W DIFF Stat Lab 10/21/22 00:27 Completed CMP Stat Lab 10/21/22 01:03 Completed MAGNESIUM Stat Lab 10/21/22 01:03 Completed T4 (Thyroxine) Stat Lab 10/21/22 01:03 Completed TROPONIN Q4H Lab 10/21/22 01:03 Completed TROPONIN Q4H Lab 10/21/22 02:57 Completed TROPONIN Q4H Lab 10/21/22 08:30 Ordered TSH [TSH, 3RD Generation] Stat Lab 10/21/22 01:03 Completed Medication Summary Discontinued Medications Generic Name Dose Route Start Last Admin Trade Name Freq PRN Reason Stop Dose Admin Hydrocodone Bitart/Acetaminophen 1 tab 10/21/22 00:20 10/21/22 00:26 Hydrocodone/Apap 5/325 1 Tab Tablet PO 10/21/22 00:21 Not Given STAT ONE Enalaprilat 1.25 mg 10/21/22 00:29 10/21/22 00:32 Enalaprilat 2.5 Mg Injection IV 10/21/22 00:30 1.25 mg STAT ONE Administration Enalaprilat Confirm 10/21/22 00:31 Enalaprilat 2.5 Mg Injection Administered 10/21/22 00:32 Dose 2.5 mg IV .STK-MED ONE Lab/Rad Data: Laboratory Result Diagrams 10/21/22 00:27 10/21/22 01:03 Laboratory Results 10/21/22 10/21/22 10/21/22 Range/Units 02:57 01:03 01:03 WBC (4.0-10.5) x10^3/uL RBC (4.1-5.6) x10^6/uL Hgb (12.5-18.0) g/dL Hct (42-50) % MCV (78-100) fL MCH (26-32) pg MCHC (32-36) g/dL RDW (11.5-14.0) % Plt Count (150-450) x10^3/uL MPV (7.5-11.0) fL Gran % (36.0-66.0) % Immature Gran % (Auto) (0.00-0.4) % Nucleat RBC Rel Count (0.00-0.1) % Eos # (Auto) (0-0.5) x10^3/uL Immature Gran # (Auto) (0.00-0.03) x10^3u/L Absolute Lymphs (auto) (1.0-4.6) x10^3/uL Absolute Monos (auto) (0.0-1.3) x10^3/uL Absolute Nucleated RBC (0.00-0.01) x10^3u/L Lymphocytes % (24.0-44.0) % Monocytes % (0.0-12.0) % Eosinophils % (0.00-5.0) % Basophils % (0.0-0.4) % Absolute Granulocytes (1.4-6.9) x10^3/uL Basophils # (0-0.4) x10^3/uL Sodium (137-145) mmol/L Potassium (3.5-5.1) mmol/L Chloride (98-107) mmol/L Carbon Dioxide (22-30) mmol/L Anion Gap (5-15) MEQ/L BUN (9-20) mg/dL Creatinine (0.66-1.25) mg/dL Estimated GFR ML/MIN Glucose (74-106) mg/dL Calcium (8.4-10.2) mg/dL Magnesium (1.6-2.3) mg/dL Total Bilirubin (0.2-1.3) mg/dL AST (17-59) U/L ALT (0-50) U/L Alkaline Phosphatase (38-126) U/L Troponin I < 0.012 < 0.012 (0.000-0.034) ng/mL Serum Total Protein (6.3-8.2) g/dL Albumin (3.5-5.0) g/dL Thyroxine (T4) 9.30 (5.53-10.96) ug/dL TSH 3rd Generation (0.47-4.68) mIU/L 10/21/22 10/21/22 10/21/22 Range/Units 01:03 01:03 00:27 WBC 9.4 (4.0-10.5) x10^3/uL RBC 4.79 (4.1-5.6) x10^6/uL Hgb 14.5 (12.5-18.0) g/dL Hct 44.4 (42-50) % MCV 92.7 (78-100) fL MCH 30.3 (26-32) pg MCHC 32.7 (32-36) g/dL RDW 13.4 (11.5-14.0) % Plt Count 253 (150-450) x10^3/uL MPV 10.3 (7.5-11.0) fL Gran % 61.2 (36.0-66.0) % Immature Gran % (Auto) 0.3 (0.00-0.4) % Nucleat RBC Rel Count 0.0 (0.00-0.1) % Eos # (Auto) 0.06 (0-0.5) x10^3/uL Immature Gran # (Auto) 0.03 (0.00-0.03) x10^3u/L Absolute Lymphs (auto) 2.40 (1.0-4.6) x10^3/uL Absolute Monos (auto) 1.12 (0.0-1.3) x10^3/uL Absolute Nucleated RBC 0.00 (0.00-0.01) x10^3u/L Lymphocytes % 25.6 (24.0-44.0) % Monocytes % 12.0 (0.0-12.0) % Eosinophils % 0.6 (0.00-5.0) % Basophils % 0.3 (0.0-0.4) % Absolute Granulocytes 5.72 (1.4-6.9) x10^3/uL Basophils # 0.03 (0-0.4) x10^3/uL Sodium 137 (137-145) mmol/L Potassium 3.3 L (3.5-5.1) mmol/L Chloride 99 (98-107) mmol/L Carbon Dioxide 28 (22-30) mmol/L Anion Gap 12.8 (5-15) MEQ/L BUN 17 (9-20) mg/dL Creatinine 1.14 (0.66-1.25) mg/dL Estimated GFR > 60.0 ML/MIN Glucose 151 H (74-106) mg/dL Calcium 9.0 (8.4-10.2) mg/dL Magnesium 2.1 (1.6-2.3) mg/dL Total Bilirubin 0.50 (0.2-1.3) mg/dL AST 33 (17-59) U/L ALT 40 (0-50) U/L Alkaline Phosphatase 107 (38-126) U/L Troponin I (0.000-0.034) ng/mL Serum Total Protein 7.6 (6.3-8.2) g/dL Albumin 4.2 (3.5-5.0) g/dL Thyroxine (T4) (5.53-10.96) ug/dL TSH 3rd Generation 8.270 H (0.47-4.68) mIU/L - Progress Progress: improved Progress Note: 10/21/22 03:33 This patient's medical history is 1 of moderate complexity. The level of complexity and the work-up performed is based on review of the patient's past medical history, review the patient's medication list, review of the patient's drug allergy list, history of present illness and physical findings on examination. In this patient, the patient is to undergo CT scan of the head without contrast, CBC, CMP, troponin level, T4 and TSH level, and twelve-lead EKG. I reviewed the results of the work-up including reviewing the radiologist interpretation of CT scan of the head which shows no acute intracranial abnormality. Patient's potassium was slightly low and we provided the patient with potassium 10 mEq orally in the emergency department. Patient's twelve-lead EKG was normal and unchanged from 1 that was performed on 05/20/2021. Patient no longer has left arm pain. We will discuss with the patient regarding providing him with a pain pill if his headache persists. I think it safe for the patient to be discharged home there are no acute, emergent medical issue at this time. His blood pressure is now under better control and we will have him discuss with his rn outpatient surgery regarding changes in his antihypertensive regimen. Counseled pt/family regarding: lab results, diagnosis, need for follow-up, rad results Medical Desision Making - Independent Historian Additional History obtained from: Spouse - Diagnostic Testing Diagnostic test were ordered, analyzed, and reviewed by me: Yes Radiological Interpretation: Reviewed by me, Teleradiologist Report - Risk of complications Low Risk: Low risk of morbidity from additional dx testing or treatment - Departure Departure Disposition: Home Clinical Impression: Hypertension, Hypokalemia, Hypothyroidism Condition: Stable Critical Care Time: No Referrals: ESTHER ROBERTSON MD [Primary Care Provider] - Follow up/PCP as directed Additional Instructions: Continue your medication as prescribed. Call your prescribing providers later today and discuss your symptoms and your visit to the emergency department today. Discussed with them modification of your drug regimens and they can change them if indicated.
[2022-10-21] MEDS ORDERED: NORCO 5/325 MG PO ONE (00:20)
[2022-10-21] MEDS ORDERED: ENALAPRILAT 2.5 MG INJECTION IV ONE ×2 (00:29→00:31)
[2022-10-21 01:06] LABS: Absolute Neutrophil Ct (ANC) 5.72 x10^3/uL (1.4-6.9); BASOPHIL % 0.3 % (0.0-0.4); Basophil (Absolute #) 0.03 x10^3/uL (0-0.4); Eosinophil % 0.6 % (0.00-5.0); Eosinophil (Absolute #) 0.06 x10^3/uL (0-0.5); Hematocrit 44.4 % (42-50); Hemoglobin 14.5 g/dL (12.5-18.0); IMMATURE GRAN # 0.03 x10^3u/L (0.00-0.03); IMMATURE GRAN % 0.3 % (0.00-0.4); Lymphocytes % 25.6 % (24.0-44.0); Mean Cell Volume 92.7 fL (78-100); Mean Corpuscular Hemoglobin 30.3 pg (26-32); Mean Corpuscular Hgb Concent. 32.7 g/dL (32-36); Mean Platelet Volume 10.3 fL (7.5-11.0); Monocyte (Absolute #) 1.12 x10^3/uL (0.0-1.3); Neutrophil % 61.2 % (36.0-66.0); Platelet Count 253 x10^3/uL (150-450); Red Blood Count 4.79 x10^6/uL (4.1-5.6); Red Cell Distribution Width 13.4 % (11.5-14.0); White Blood Count 9.4 x10^3/uL (4.0-10.5)
[2022-10-21 01:21] LABS: ALBUMIN 4.2 g/dL (3.5-5.0); ALKALINE PHOSPHATASE 107 U/L (38-126); ANION GAP 12.8 MEQ/L (5-15); BLOOD UREA NITROGEN 17 mg/dL (9-20); CHLORIDE 99 mmol/L (98-107); Carbon Dioxide 28 mmol/L (22-30); Creatinine 1 1.14 mg/dL (0.66-1.25); EST GLOMERULAR FILTRATION RATE > 60.0 ML/MIN; Glucose 151 mg/dL (74-106); MAGNESIUM 2.1 mg/dL (1.6-2.3); Potassium 3.3 mmol/L (3.5-5.1); SGOT/AST 33 U/L (17-59); SGPT/ALT 40 U/L (0-50); SODIUM 137 mmol/L (137-145); Total Protein 7.6 g/dL (6.3-8.2)
--- NOTE | 2022-10-21 01:51 | XRAY ---
CLINICAL HISTORY:Hypertension; COMPARISON:None; TECHNIQUES:Axial non-contrast CT scan of the brain was performed from the skull base to the high parietal region; FINDINGS: The visualized brain parenchyma shows carcamo-white matter differentiation. No midline shift. No intracerebral or extra axial hematoma. Normal size and configuration of the cerebral ventricles. Normal CT appearance of the posterior fossa structures. The osseous structures in the skull base are unremarkable. No definite calvarium fractures. Retention cysts are seen in the bilateral maxillary sinus. Mastoid air cells are clear. IMPRESSION: No acute intracranial hemorrhage or acute territorial infarction. Bilateral maxillary sinus retention cysts. Electronically Signed by: John Otto MD. (10/21/2022 00:46:45 ROCK CRUSHER OPERATOR)
[2022-10-21] MEDS ORDERED: Klor Con PO ONE ×2 (03:33→03:42)
[2022-10-21 03:53] VITALS: BP 164/79; PULSE 60; O2SAT 94
== END 2022-10-21 03:53 | disposition home or self-care (01) ==
LOC: ED 23:33
DX: I10 Essential (primary) hypertension (principal); E87.6 Hypokalemia; E03.9 Hypothyroidism, unspecified; R51.9 Headache, unspecified; M79.602 Pain in left arm; E78.5 Hyperlipidemia, unspecified; E11.9 Type 2 diabetes mellitus without complications; Z79.01 Long term (current) use of anticoagulants; Z79.84 Long term (current) use of oral hypoglycemic drugs; Z79.899 Other long term (current) drug therapy
CPT/HCPCS: 36000; 36415; 70450; 80053; 83735; 84436; 84443; 84484; 85025; 93005; 93041; 94760; 96374; 99284; A9270-GY

== ENCOUNTER 2025-02-14 06:16 | Day surgery (SDC) | payer MEDICARE, OTHER ==
[2025-02-14 06:58] VITALS: RESP 18
[2025-02-14] MEDS ORDERED: Lactated Ringers 1,000 ML IV SCH (07:00)
[2025-02-14] MEDS ORDERED: propofoL IV ONE ×2 (07:51)
[2025-02-14 08:08] LABS: Calcium 9.1 mg/dL (8.4-10.2); Carbon Dioxide 23.0 mmol/L (22-30); Creatinine 1 1.03 mg/dL (0.66-1.25); EST GLOMERULAR FILTRATION RATE 76.2 ML/MIN; Glucose 141.0 mg/dL (74-106); Potassium 4.5 mmol/L (3.5-5.1); SGOT/AST 43.0 U/L (17-59); SGPT/ALT 32.0 U/L (0-50); Total Protein 8.2 g/dL (6.3-8.2)
[2025-02-14] MEDS ORDERED: Ephedrine Sulfate 50 MG/ML ONE (08:18)
[2025-02-14 09:01] VITALS: TEMP 97.3
[2025-02-14 09:12] VITALS: BP 159/70; PULSE 58; O2SAT 98
--- NOTE | 2025-02-15 09:36 | OP ---
SURGERY DATE/TIME: 02/14/2025 08:01 - 08:30 PREOPERATIVE DIAGNOSES: 1) Screening colonoscopy. 2) History of colon polyps. POSTOPERATIVE DIAGNOSIS: Normal colon. PROCEDURE: Colonoscopy. SURGEON: Richard Robertson MD ANESTHESIA: MAC by oMnty Sandoval CRNA. ESTIMATED BLOOD LOSS: None. SPECIMEN: None. DESCRIPTION OF PROCEDURE AND FINDINGS: After informed written consent was obtained, the patient was taken to the endoscopy suite. He was placed in the left lateral decubitus position and anesthesia was titrated to desired level of consciousness. Digital rectal exam showed normal sphincter tone and no internal lesions. Scope was inserted into the rectum and sequentially the entire colonic mucosa was traversed. Level of cecum was reached and verified with direct visualization of the ileocecal valve. Upon withdrawal, careful mucosal inspection revealed no gross abnormalities, prep was noted to be fair. Prior to withdrawal, retroflexion showed no internal lesions. Scope was removed and the patient was transferred to the recovery room in good condition.
== END 2025-02-14 09:23 | disposition home or self-care (01) ==
LOC: SDC 06:16
PROVIDERS: ATTEND Family Medicine
DX: Z12.11 Encounter for screening for malignant neoplasm of colon (principal); Z09 Encounter for follow-up examination after completed treatment for conditions other than malignant neoplasm; Z86.0100 Personal history of colon polyps, unspecified; I10 Essential (primary) hypertension; E78.5 Hyperlipidemia, unspecified; E11.9 Type 2 diabetes mellitus without complications